=== PATIENT | female | born 1965 | race Caucasian/White ===

== ENCOUNTER → 2019-05-17 | Outpatient (CLI) | payer BC ==
[~2019-05-17] MED LIST: NORCO 5-325 TA1 EACH PO
[2019-05-17 12:49] LABS: ABSOLUTE EOSINOPHILS 0.1 thou/uL (0.0-0.7); ABSOLUTE LYMPHOCYTES 1.3 thou/uL (0.8-5.3); ABSOLUTE MONOCYTES 0.5 thou/uL (0.0-1.2); BASOPHILS 0.7 %; EOSINOPHILS 2.3 %; HEMATOCRIT 40.9 % (37.0-47.0); HEMOGLOBIN 13.7 gm/dL (12.0-15.0); LYMPHOCYTES 22.5 %; MCH 29.7 pg (26.0-34.0); MCHC 33.5 g/dL (28.0-37.0); MCV 88.8 fL (80.0-100.0); MONOCYTES 7.7 %; MPV 8.1 fl. (7.2-11.1); NUCLEATED RBCS 0 /100WBC; PLATELET COUNT* 246 thou/uL (150-400); POLYS 66.8 %; RBC 4.61 mil/uL (4.20-5.00); WBC 5.9 thou/uL (4.0-11.0)
[2019-05-17 13:00] LABS: ALBUMIN 3.9 g/dL (3.4-5.0); CREATININE 0.7 mg/dL (0.6-1.3); POTASSIUM 4.2 mmol/L (3.5-5.1); TOTAL BILIRUBIN 0.1 mg/dL (<0.1-1.0); TOTAL PROTEIN 7.3 g/dL (6.4-8.2)
[2019-05-17 14:00] LABS: ESR (SEDRATE) 2 mm/hr (0-30)
== END ==
LOC: M.MRI 05-01 15:04 → M.LAB 12:23 → M.MRI 13:30
PROVIDERS: Psychiatry & Neurology Neuromuscular Medicine
DX: M47.892 Other spondylosis, cervical region (principal); M50.323 Other cervical disc degeneration at C6-C7 level; M50.21 Other cervical disc displacement, high cervical region; G37.8 Other specified demyelinating diseases of central nervous system; M48.02 Spinal stenosis, cervical region; F17.200 Nicotine dependence, unspecified, uncomplicated; G35 Multiple sclerosis; H55.00 Unspecified nystagmus